=== PATIENT | male | born 1960 | race Caucasian/White ===

== ENCOUNTER 2020-03-31 04:16 | Emergency (ER) | payer BC, SELFPAY ==
[2020-03-31 04:17] VITALS: BP 121/73; PULSE 69; RESP 17; TEMP 36.6; O2SAT 99; BMI 26.5
[2020-03-31] MEDS: 0.9% Normal Saline 1,000 ML 1000 ML IV (04:34)
[2020-03-31] MEDS: Ondansetron 4 MG/2 ML Vial IV (04:37)
[2020-03-31] MEDS: LORazepam 2 MG/ML Syringe 1 MG IV (04:37)
[2020-03-31 04:39] LABS: Absolute Lymphocyte Count 2.23 X10^3/uL (0.83-4.51); Absolute Neutrophil Count 4.3 X10^3/uL (2.0-7.7); Basophil# 0.07 X10^3/uL; Basophil% 0.9 % (0-1); Eosinophil# 0.31 X10^3/uL; Eosinophils% 4.1 % (0-5); Hemoglobin 14.7 g/dL (13.0-16.5); Lymphocyte # 2.23 X10^3/ul (4.0); Lymphocyte % 29.5 % (19-41); Mean Corp Hgb Conc 32.7 g/dL (32-36); Mean Corpuscular Hgb 28.3 pg (27.0-32.0); Mean Corpuscular Volume 86.5 fL (80-94); Mean Platelet Vol. 9.7 fl (6.2-12.0); Monocyte% 7.9 % (0-10); NRBC Flagged by Analyzer 0 % (0-5); Neutrophil % 56.9 % (47-70); Platelet Count 186 K/mm3 (150-450); RBC Distribution Width CV 13.5 % (11.6-14.6); RBC Distribution Width SD 41.9 fl (35.1-43.9); White Blood Count 7.6 K/mm3 (4.4-11.0)
--- NOTE | 2020-03-31 04:50 | ED.DCSUM_ITS ---
- ER Visit Summary Date of Service: 03/31/20 Chief Complaint: [Dizziness] History of Present Illness: The patient is a 60 M [presents to the emergency department complaint of dizziness that started around 3 AM. Patient states that he was sleeping and woke up feeling hot. Patient then began feeling quite d zain and vertiginous. Patient thinks maybe he was dehydrated because he did a lot of biking and spent time out in the sun yesterday. Patient denies any headache or falls or head injuries. No recent illness. He has no medical history. He denies any chest pain or shortness of breath. Patient did vomit on arrival to the emergency department.] Physical Examination: [HEENT-PERRLA, EOMI. Cranial nerves II through XII grossly intact. TMs clear. Mucous membranes moist. No adenopathy. Cardiovascular-regular rate and rhythm without murmur or ectopy Lungs-clear to auscultation, chest wall stable without crepitus or subcu emphysema Abdomen-normoactive bowel sounds, soft, nontender, no rebound or rigidity, no peritoneal signs. Neuro [id number] and heel barakat testing within normal limits, negative Romberg, negative for drift, fundi benign. Hallpike maneuver performed did elicit nystagmus with slow beating component to the left. Extremities-intact ?4, normal range of motion, normal pulses, atraumatic] Test Results: [CBC with differential was normal. Chemistries unremarkable.] Emergency Department Course and Treatment: [IV line established. Patient given a liter normal same fluid bolus. Patient given Ativan 1 mg IV as well as Zofran 4 mg IV and Antivert 25 mg p.o. Patient continues to complain of significant dizziness even in bed.] After patient was evaluated by hospitalist and orders for admission were written patient was able to get up to the bathroom and decided that he did not want to be admitted at this time. Patient would prefer to go home because he was feeling better. Patient states that he will return if symptoms worsen although he states he is not having any vertigo symptoms at this time. Treatment Plan: [Feel patient has benign positional vertigo.] Disposition: [Discharged home in stable condition] Impression: [Benign positional vertigo] This note was generated with monEchelleation software. It may contain incorrect words, spelling, and punctuation that were not noted in review of the chart prior to signing ED Disposition - Plan for ED Patient: Disposition: Acute Care Hospital [facility]
[2020-03-31 05:11] LABS: Anion Gap 10 (5-15); BUN 23 mg/dL (7-18); BUN/Creat Ratio 25.7 RATIO (10-20); Calcium,Total 8.8 mg/dL (8.5-10.1); Chloride 106 mmol/L (98-107); EST Glomerular Filtration Rate 92 mL/min (>60); Est Glom Filt Rate - Afr Amer 111 mL/min (>60); Estimated Creatinine Clearance 77.78 ml/min; Glucose 141 mg/dL (74-106); Potassium 3.6 mmol/L (3.5-5.1); Sodium Level 141 mmol/L (136-145)
[2020-03-31] MEDS: Meclizine HCl 25 MG Tablet PO (05:17)
[2020-03-31 05:53] VITALS: BP 111/82; PULSE 57; RESP 17; O2SAT 96
--- NOTE | 2020-03-31 05:53 | ED.RN ---
unable to walk pt c/o dizziness just laying in bed
--- NOTE | 2020-03-31 06:01 | HP.PCM_ITS ---
Problem List (1) Vertigo Status: Acute (2) Hyperglycemia Status: Acute History of Present Illness Date of Admission: 03/31/20 Chief Complaint: Vertigo The patient is a 60 y/o M w/ PMHx: Prior BPPV (more mild), GERD who presents to the [facility] ED on 03/31/20 with history of sudden onset nausea with vertiginous symptoms starting at 3 am without marked improvement prompting eventual ED presentation. He noted to have awoken diaphoretic and upon turning over became severely vertiginous with nausea and emesis onset. He noted recent aggressive activity the day before with poor water intake. He denies any recent trauma or syncope. Patient denies any other associated neurological deficits or symptoms. Work-up in the ED included T 97.9, heart rate 69, BP 121/73, respiratory rate 17, 99% on room air, CBC unremarkable, BMP unremarkable aside glucose 141. In the ED patient administered normal saline, Zofran, meclizine, Ativan. ED evaluation with noted nystagmus with slow beating component to the left with [place]-Hallpike maneuvering. Ambulation attempts of patient felt secondary to ongoing significant vertiginous symptoms with movement but notes improvement of nausea. Past Medical History Allergies No Known Allergies Allergy (Verified 03/31/20 04:22) Home Medications: Ambulatory Orders Medication Instructions Recorded NK 03/31/20 Surgical History: tonsillectomy Psychiatric History: No pertinent psych hx Lives: Spouse/ Significant Other Smoking Status: Never smoker Tobacco Use: Non-smoker Alcohol: None Drugs: None - *Family History Maternal History Items: - - Patient notes paternal family history of severe OA otherwise no market history of heart disease, diabetes or cancer. Paternal History Items: Cancer Review of Systems Constitutional: Reports: Anorexia, Malaise, Weakness, Fatigue. Denies: Chills, Fever, Weight Change HEENT: Denies: Head Aches, Sinus Congestion, Sinus Drainage Cardiovascular: Denies: Chest Pain, Palpitations Respiratory: Denies: Cough, Shortness of breath at rest, Sputum production Gastrointestinal: Reports: Nausea, Vomiting. Denies: Abdominal Pain Genitourinary: Denies: Dysuria Musculoskeletal: Denies: Joint Pain, Joint Tenderness Skin: Denies: Rash, Wounds Neurological: Reports: - - Vertigo.. Denies: Focal weakness, Numbness, Tingling Psychiatric: Denies: Anxiety, Depression, Homicidal Ideations, Suicidal Ideations Hematologic/ Lymphatic: Denies: Easy Bruising, Easy Bleeding VTE Information - Inpt Only VTE Present on Admission: No VTE Mechan Device Prophylaxis: SCD's VTE Pharm Prophylaxis ordered?: Yes Patient Problems: Active and Suspected Problems Vertigo (Acute) Hyperglycemia (Acute) Subjective: Patient seated upright in ED bed, fatigued appearance, notes mildly improved since initial ED presentation with resolving nausea. Objective: Physical Examination: General: awake, alert, oriented x 3 and cooperative, laying in the ED bed, fatigued appearance. Skin: normal color, turgor, no icterus, cyanosis. HEENT: AT/NC, EOMI, PERRLA, dry MM, no carotid bruits or JVD noted. Lungs: CTA bilaterally, moderate effort, mild decrease BL bases, no rales, ronchi or wheezing. Heart: Regular rate and rhythm; no gallop, rub audible. Abdomen: soft, NTTP, ND, normal BS, no HSM. Extremities: no cyanosis, clubbing, or edema. Neurological: patient awake, alert, oriented x 3; cognitive function intact; pupils equally reactive to light and accomodation; cranial nerves II-XII grossly normal, moving all 4 extremities although extremely limited especially with movement with onset vertiginous symptoms, + DHM with as noted nystagmus present. Psychiatric: affect appears fatigued, no acute evidence of depressive or anxiety feelings. - Physical Exam Vitals/I&O's: Vital Signs Temp Pulse Resp BP Pulse Ox 97.9 F 57 L 17 111/82 H 96 03/31/20 04:17 03/31/20 05:53 03/31/20 05:53 03/31/20 05:53 03/31/20 05:53 Oxygen Delivery Method Room Air Weight: 164 lb 7.437 oz Body Mass Index (BMI) 26.5 Intake and Output for Last 24 Hours 03/29/20 03/30/20 03/31/20 23:59 23:59 23:59 Intake Total 1000 / 1000 Balance 1000 / 1000 Laboratory Results 03/31/20 04:30: WBC 7.6, RBC 5.20, Hgb 14.7, Hct 45.0, MCV 86.5, MCH 28.3, MCHC 32.7, RDW Std Deviation 41.9, RDW Coeff of Eduardo 13.5, Plt Count 186, MPV 9.7, Immature Gran % (Auto) 0.700, Neut % (Auto) 56.9, Lymph % (Auto) 29.5, Person % (Auto) 7.9, Eos % (Auto) 4.1, Baso % (Auto) 0.9, Absolute Neuts (auto) 4.3, Absolute Lymphs (auto) 2.23, Nucleated RBC % 0 03/31/20 04:30: Sodium 141, Potassium 3.6, Chloride 106, Carbon Dioxide 25.0, Anion Gap 10, BUN 23 H, Creatinine 0.90, Estim Creat Clear Calc 77.78, Est GFR (MDRD) Af Amer 111, Est GFR (MDRD) Non-Af 92, BUN/Creatinine Ratio 25.7 H, Glucose 141 H, Calcium 8.8 Assessment/Plan All Active Problems Vertigo (Acute) Hyperglycemia (Acute) The patient is a 60 y/o M w/ PMHx: Prior BPPV, GERD who presents to the [facility] ED on 03/31/20 with history of sudden onset nausea with vertiginous symptoms starting at 3 am without marked improvement prompting eventual ED presentation. 1. Vertigo, suspected benign positional: Unclear specific etiology although recent aggressive activity with poor water/oral hydration however patient does admit to prior history of vertiginous symptoms although less severe nature. ED evaluation with unremarkable CBC, BMP with glucose 141. Will admit to [facility], maintain on fall precautions, maintain on scheduled meclizine, PRN zofran, IVFs. If ongoing intractable vertigo may need to consider CT brain versus MRI brain. May also need to consider vestibular PT therapy. 2. Hyperglycemia: Admission glucose 141, hemoglobin A1c pending. 3. GERD: Maintain on famotidine. 4. DVT prophylaxis: SCDx, lovenox. OBSV E&M: 51263 Initial observation care L3
[2020-03-31 06:19] VITALS: BP 111/79; PULSE 72; RESP 17; TEMP 36.1; O2SAT 99
[2020-03-31 06:55] VITALS: BP 108/73; PULSE 59; RESP 14; O2SAT 98
--- NOTE | 2020-03-31 07:21 | PCM.PN.BLA ---
Progress Note BPPV GERD STROKE Vital Signs/Narrative: Vital Signs Temp Pulse Resp BP Pulse Ox 03/31/20 06:55 59 L 14 108/73 98 03/31/20 06:19 97 F L 72 17 111/79 99 03/31/20 05:53 57 L 17 111/82 H 96 03/31/20 04:17 97.9 F 69 17 121/73 H 99
--- NOTE | 2020-03-31 07:48 | ED.DEP ---
ED Disposition - Plan for ED Patient: Instructions: ED BPV Vertigo Prescriptions: Meclizine HCl [Antivert] 25 mg PO 4X/DAY PRN PRN #20 tab PRN Reason: Dizziness Prescription Printed Ondansetron [Zofran Odt] 4 mg PO Q8H PRN PRN #10 tab PRN Reason: Nausea Prescription Printed Referrals: Alexander Finley MD [STAFF PHYSICIAN] - 3-5 Days
[2020-03-31 08:01] VITALS: BP 134/77; PULSE 68; RESP 15; O2SAT 98
== END 2020-03-31 08:16 | disposition home or self-care (01) ==
LOC: ED 04:48 → MS3 06:59
PROVIDERS: Emergency Provider Emergency Medicine; PCP Family Medicine; Visit Provider Family Medicine
DX: H81.10 Benign paroxysmal vertigo, unspecified ear (principal)
CPT/HCPCS: 80048; 85025; 96361; 96374; 96375; 99285; J7030; A4216; J2405